=== PATIENT | female | born 1960 | race Caucasian/White ===

== ENCOUNTER 2022-07-24 06:30 | Emergency (ER) | payer BC ==
[2022-07-24 07:33] LABS: ANION GAP 12.7 mmol/L (5-15); CHLORIDE,CL 100 mmol/L (98-107); SODIUM,NA 137 mmol/L (136-145)
[2022-07-24 07:37] LABS: ESTIMATED GFR 106 mL/min (>=60)
[2022-07-24] MEDS ORDERED: Benzonatate 100 MG Cap PO ONE (08:05)
== END 2022-07-24 08:46 | disposition home or self-care (01) ==
LOC: KA.ED 06:30
DX: R07.89 Other chest pain (principal); J10.1 Influenza due to other identified influenza virus with other respiratory manifestations; E03.9 Hypothyroidism, unspecified; Z79.899 Other long term (current) drug therapy
CPT/HCPCS: 71046; 80053; 83880; 84443; 84484; 85025; 85379; 86140; 87804; 87807; 93005; 93010; 99284; 99285; A9270-GY